=== PATIENT | male | born 1980 | race Caucasian/White ===

== ENCOUNTER 2016-12-17 17:08 | Emergency (ER) | payer SELFPAY ==
[2016-12-17 17:25] VITALS: BP 128/68
[2016-12-17] MEDS ORDERED: Ibuprofen TAB* 600 MG PO ONE (17:47)
[2016-12-17] MEDS ORDERED: Cyclobenzaprine TAB* 10 MG PO ONE (17:47)
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
== END 2016-12-17 18:27 | disposition home or self-care (01) ==
LOC: UCCORT 17:08
DX: S33.5XXD Sprain of ligaments of lumbar spine, subsequent encounter (principal); Z72.0 Tobacco use
CPT/HCPCS: 99203; A9270-GY; G0463